=== PATIENT | female | born 1985 | race Caucasian/White ===

== ENCOUNTER → 2023-06-13 09:25 | Outpatient (REF) | payer BC, SELFPAY | LOC: HWEVLT 09:25 | PROVIDERS: ATTENDING PHYSICIAN Radiology Vascular & Interventional Radiology | DX: I83.892 Varicose veins of left lower extremity with other complications (principal) | CPT/HCPCS: 36478 ==

== ENCOUNTER → 2023-07-02 12:07 | Outpatient (REF) | payer BC, SELFPAY | LOC: HWEVLT 12:07 | PROVIDERS: ATTENDING PHYSICIAN Radiology Vascular & Interventional Radiology | DX: I83.892 Varicose veins of left lower extremity with other complications (principal) | CPT/HCPCS: 93971 ==